=== PATIENT | female | born 1960 | race Caucasian/White ===

== ENCOUNTER 2017-07-22 15:36 | Emergency (ER) | payer MEDICAID ==
[~2017-07-22] VITALS: Ht 160 cm; Wt 71.0 kg
[~2017-07-22 15:36] MED LIST: ACET650S25 PO; BACL-141 PO; DIPH50CA38 PO; DOXE50CA4 PO; NAPR-681 PO; PHEN100C4 PO; TRAZ150T78 PO
[2017-07-22] MEDS ORDERED: HYDROCODONE/APAP 7.5/325MG 1 TAB TABLET PO ONE (19:45)
[2017-07-23 03:07] VITALS: BP 114/70
== END 2017-07-23 03:44 | disposition home or self-care (01) ==
LOC: ER 15:43
DX: S80.01XA Contusion of right knee, initial encounter (principal); J45.909 Unspecified asthma, uncomplicated; F17.200 Nicotine dependence, unspecified, uncomplicated; Z86.73 Personal history of transient ischemic attack (TIA), and cerebral infarction without residual deficits; W17.89XA Other fall from one level to another, initial encounter; Y93.89 Activity, other specified; Y99.8 Other external cause status; Y92.89 Other specified places as the place of occurrence of the external cause
CPT/HCPCS: 73560; 99284; Z7610

== ENCOUNTER 2018-03-16 19:07 | Emergency (ER) | payer MEDICAID ==
[~2018-03-16] VITALS: Ht 167.6 cm; Wt 90.0 kg
[2018-03-16] MEDS ORDERED: IBUPROFEN 800MG TABLET PO ONE (22:00)
[2018-03-16 22:30] VITALS: BP 112/75
== END 2018-03-16 23:00 | disposition home or self-care (01) ==
LOC: ER 19:07
DX: M79.89 Other specified soft tissue disorders (principal); M79.604 Pain in right leg; M25.571 Pain in right ankle and joints of right foot; R03.0 Elevated blood-pressure reading, without diagnosis of hypertension; Z79.899 Other long term (current) drug therapy
CPT/HCPCS: 73610; 73630; 93971; 99284; Z7610

== ENCOUNTER 2019-09-10 10:32 | Emergency (ER) | payer MEDICAID ==
[~2019-09-10] VITALS: Ht 167.6 cm; Wt 70.0 kg
[~2019-09-10 10:32] MED LIST changes: -BACL-141 PO; -NAPR-681 PO
[2019-09-10] MEDS ORDERED: ALBUTEROL (0.083%) 2.5MG/3ML NEB HHN STA (11:50)
[2019-09-10] MEDS ORDERED: IPRATROPIUM BROMIDE (0.02%) 0.5MG/2.5ML NEB HHN STA (11:50)
[2019-09-10] MEDS ORDERED: SODIUM CHLORIDE 0.9% 500 ML IV ONE (12:00)
[2019-09-10 12:09] LABS: BASOPHILS % 0.4 % (0.0-2.0); EOSINOPHILS % 0.6 % (0.0-5.0); HEMATOCRIT. 45.8 % (36.0-48.0); HEMOGLOBIN. 15.3 g/dL (12.0-16.0); LYMPHOCYTES % 8.8 % (20.0-50.0); MEAN CORPUSCULAR HEMOGLOBIN 30.6 pg (28.0-32.0); MEAN CORPUSCULAR VOLUME 91.7 fL (81.0-99.0); MONOCYTES % 11.5 % (2.0-8.0); NEUTROPHILS % 78.7 % (40.0-76.0); PLATELET 59 x1000/uL (130-400); RED CELL DISTRIBUTION WIDTH 15.1 % (11.6-14.6)
[2019-09-10 12:16] LABS: CHLORIDE 105 mEq/L (98-107)
[2019-09-10 12:18] LABS: INR 1.1; PARTIAL THROMBOPLASTIN TIME 24.1 sec (23.4-31.0); PROTHROMBIN TIME 11.6 sec (9.6-11.0)
[2019-09-10] MEDS ORDERED: DILTIAZEM HCL 125 MG in DEXT 5% WATER 100 ML IV ONE (12:45)
[2019-09-10] MEDS ORDERED: DILTIAZEM HCL 5MG/ML 5ML VIAL IV ONE (12:45)
[2019-09-10 14:06] VITALS: BP 132/65
== END 2019-09-10 14:07 | disposition left against medical advice (07) ==
LOC: ER 10:42
DX: R06.02 Shortness of breath (principal); I48.20 Chronic atrial fibrillation, unspecified; I10 Essential (primary) hypertension; J45.909 Unspecified asthma, uncomplicated
CPT/HCPCS: 36415; 71045; 80053; 83880; 84484; 85025; 85610; 85730; 93005; 94640; 99284; C1893; J3490; J7040; J7060; J7611; Z7610

== ENCOUNTER 2019-09-10 19:14 | Inpatient (IN) | payer MEDICAID ==
[~2019-09-10] VITALS: Ht 160 cm; Wt 94.4 kg
[2019-09-10] MEDS ORDERED: METHYLPREDNISOLONE SOD SUCC 125 MG/2 ML VIAL IV STA (20:38)
[2019-09-10] MEDS ORDERED: DILTIAZEM HCL 30MG TABLET PO ONE (20:45)
[2019-09-10] MEDS ORDERED: LEVOFLOXACIN 500MG PREMIX 100 ML IV ONE (20:45)
[2019-09-10] MEDS ORDERED: MAGNESIUM 2 G PREMIX 50 ML IV ONE (20:45)
[2019-09-10] MEDS ORDERED: DILTIAZEM HCL 5MG/ML 5ML VIAL IV ONE (20:45)
[2019-09-10] MEDS ORDERED: IPRATROPIUM/ALBUTEROL 0.5-3(2.5)MG/3ML NEB HHN ONE (20:45)
[2019-09-10 21:46] LABS: CHLORIDE 104 mEq/L (98-107)
[2019-09-10 21:51] LABS: ETHANOL BLOOD < 10 mg/dL; INR 1.1; PARTIAL THROMBOPLASTIN TIME 30.5 sec (23.4-31.0); PROTHROMBIN TIME 11.5 sec (9.6-11.0)
[2019-09-10 22:08] LABS: DIGOXIN 0.1 ng/mL (0.9-2.0)
[2019-09-10 22:22] LABS: BASOPHILS % 0.4 % (0.0-2.0); EOSINOPHILS % 0.2 % (0.0-5.0); HEMATOCRIT. 48.9 % (36.0-48.0); HEMOGLOBIN. 16.6 g/dL (12.0-16.0); MEAN CORPUSCULAR HEMOGLOBIN 30.3 pg (28.0-32.0); MEAN CORPUSCULAR VOLUME 89.4 fL (81.0-99.0); MONOCYTES % 14.6 % (2.0-8.0); NEUTROPHILS % 75.8 % (40.0-76.0); RED BLOOD CELL COUNT 5.47 mill/uL (4.2-5.4); RED CELL DISTRIBUTION WIDTH 15.2 % (11.6-14.6)
[2019-09-10 22:24] LABS: BG BASE EXCESS -0.5 mmol/L (-2.0-2.0); BG CARBOXYHEMOGLOBIN 2.2 % (0.5-1.5); BG DEOXYHEMOGLOBIN 11.9 % (0.0-5.0); BG FRACTION INSPIRED OXYGEN 21; BG HCO3 ACT 23.7 mmol/L (22.0-26.0); BG METHEMOGLOBIN 0.3 % (0.0-1.5); BG OXYGEN SATURATION 87.8 % (92.0-98.5); BG OXYHEMOGLOBIN 85.6 % (94.0-97.0); BG PCO2 37.6 mmHg (35.0-45.0); BG PH 7.417 (7.350-7.450); BG PO2 50.9 mmHg (75.0-100.0); BG SAMPLE SITE RIGHT RADIAL; BG TOTAL HEMOGLOBIN 15.8 g/dL (12.0-18.0); BG VENT MODE ROOM AIR
[2019-09-10 22:36] LABS: PLATELET 207 x1000/uL (130-400)
[2019-09-10] MEDS ORDERED: FUROSEMIDE 40MG/4ML VIAL IVP ONE (22:45)
[2019-09-10] MEDS ORDERED: DILTIAZEM HCL 125 MG in DEXT 5% WATER 100 ML IV ONE (22:45)
[2019-09-11] VITALS (10 sets, daily range): BP systolic 105–150; BP diastolic 60–87
[2019-09-11 02:21] LABS: CLARITY URINE CLOUDY (CLEAR); COLOR URINE YELLOW (YELLOW); KETONES URINE NEGATIVE (NEGATIVE); LEUKOCYTE ESTERASE URINE 2+ (NEGATIVE); NITRITE URINE NEGATIVE (NEGATIVE); OCCULT BLOOD URINE TRACE (NEGATIVE); PH URINE 5.5 (4.5-8.0); PROTEIN URINE TRACE (NEGATIVE); SPECIFIC GRAVITY URINE 1.017 (1.005-1.030)
[2019-09-11 02:33] LABS: *AMPHETAMINES SCREEN URINE NEGATIVE (NEGATIVE); *BARBITURATES SCREEN URINE NEGATIVE (NEGATIVE); *BENZODIAZEPINES SCREEN URINE PRESUMTIVE POSITIVE (NEGATIVE); *COCAINE SCREEN URINE NEGATIVE (NEGATIVE)
[2019-09-11 02:34] LABS: CANNABINOID URINE SCREEN NEGATIVE (NEGATIVE); METHADONE URINE SCREEN NEGATIVE (NEGATIVE); OPIATES URINE SCREEN PRESUMTIVE POSITIVE (NEGATIVE); PHENCYCLIDINE URINE SCREEN NEGATIVE (NEGATIVE)
[2019-09-11] MEDS ORDERED: ACETAMINOPHEN 325MG TABLET PO PRN (09:30)
[2019-09-11] MEDS ORDERED: ONDANSETRON HCL 4MG/2ML INJ IV PRN (09:30)
[2019-09-11] MEDS ORDERED: DIGOXIN 500MCG/2ML AMP IV SCH ×2 (09:30→12:30)
[2019-09-11] MEDS: METHYLPREDNISOLONE SOD SUCC 40 MG/ML VIAL IV SCH ×3 (09:55→22:00)
[2019-09-11] MEDS: FUROSEMIDE 40MG/4ML VIAL IVP SCH (09:56)
[2019-09-11] MEDS ORDERED: ENOXAPARIN 100MG/ML SYR SUBCUT SCH (10:00)
[2019-09-11] MEDS: DIGOXIN 500MCG/2ML AMP IV SCH (17:19)
[2019-09-11] MEDS: ENOXAPARIN 100MG/ML SYR SUBCUT SCH (21:00)
[2019-09-11] MEDS: LEVOFLOXACIN 750MG PREMIX 150 ML IV SCH ×2 (22:00→22:22)
[2019-09-11] MEDS: DILTIAZEM HCL 125 MG in DEXT 5% WATER 100 ML IV PRN (22:06)
[2019-09-11] MEDS: ATORVASTATIN CALCIUM 40MG TABLET PO SCH (22:21)
[2019-09-12] VITALS (12 sets, daily range): BP systolic 91–146; BP diastolic 35–99
[2019-09-12] MEDS: METHYLPREDNISOLONE SOD SUCC 40 MG/ML VIAL IV SCH ×4 (06:00→22:09)
[2019-09-12 07:32] LABS: BASOPHILS % 0.2 % (0.0-2.0); HEMATOCRIT. 44.6 % (36.0-48.0); HEMOGLOBIN. 14.9 g/dL (12.0-16.0); LYMPHOCYTES % 9.6 % (20.0-50.0); MEAN CORPUSCULAR HEMOGLOBIN 30.4 pg (28.0-32.0); MEAN PLATELET VOLUME 9.7 fl (7.4-10.4); MONOCYTES % 14.1 % (2.0-8.0); NEUTROPHILS % 76.1 % (40.0-76.0); PLATELET 186 x1000/uL (130-400); RED CELL DISTRIBUTION WIDTH 15.3 % (11.6-14.6)
[2019-09-12 07:38] LABS: CHLORIDE 101 mEq/L (98-107)
[2019-09-12] MEDS ORDERED: INFLUENZA VIRUS VACCINE(AFLURIA) 0.5ML SYR IM ONE (09:00)
[2019-09-12] MEDS ORDERED: PNEUMOCOCCAL 23-VAL P-SAC VAC 0.5 ML IM ONE (09:00)
[2019-09-12] MEDS: FUROSEMIDE 40MG/4ML VIAL IVP SCH (09:31)
[2019-09-12] MEDS: ENOXAPARIN 100MG/ML SYR SUBCUT SCH ×2 (09:32→22:09)
[2019-09-12] MEDS: DILTIAZEM HCL 125 MG in DEXT 5% WATER 100 ML IV PRN ×2 (09:41→17:12)
[2019-09-12] MEDS: BUDESONIDE 0.5MG/2ML NEB HHN SCH ×3 (10:00→20:59)
[2019-09-12] MEDS: IPRATROPIUM BROMIDE (0.02%) 0.5MG/2.5ML NEB HHN SCH ×5 (11:42→21:00)
[2019-09-12] MEDS: DIGOXIN 500MCG/2ML AMP IV SCH (17:12)
[2019-09-12] MEDS: DILTIAZEM HCL 30MG TABLET PO SCH (18:57)
[2019-09-12] MEDS: ATORVASTATIN CALCIUM 40MG TABLET PO SCH (22:09)
[2019-09-12] MEDS: LEVOFLOXACIN 750MG PREMIX 150 ML IV SCH (22:10)
[2019-09-12] MEDS: GUAIFENESIN-DM 200MG-20MG/10ML UDC PO PRN (23:52)
[2019-09-13] VITALS (12 sets, daily range): BP systolic 81–151; BP diastolic 32–96
[2019-09-13] MEDS: IPRATROPIUM BROMIDE (0.02%) 0.5MG/2.5ML NEB HHN SCH ×6 (01:11→22:08)
[2019-09-13] MEDS: DILTIAZEM HCL 30MG TABLET PO SCH ×4 (01:47→17:28)
[2019-09-13] MEDS: DILTIAZEM HCL 125 MG in DEXT 5% WATER 100 ML IV PRN ×2 (05:56→18:03)
[2019-09-13] MEDS: METHYLPREDNISOLONE SOD SUCC 40 MG/ML VIAL IV SCH ×3 (06:04→21:47)
[2019-09-13 06:35] LABS: HEMATOCRIT. 46.9 % (36.0-48.0); HEMOGLOBIN. 15.9 g/dL (12.0-16.0); LYMPHOCYTES % 7.1 % (20.0-50.0); MEAN CORPUSCULAR HEMOGLOBIN 30.9 pg (28.0-32.0); MEAN CORPUSCULAR VOLUME 91.6 fL (81.0-99.0); MEAN PLATELET VOLUME 10.4 fl (7.4-10.4); MONOCYTES % 7.2 % (2.0-8.0); NEUTROPHILS % 85.7 % (40.0-76.0); PLATELET 196 x1000/uL (130-400); RED BLOOD CELL COUNT 5.13 mill/uL (4.2-5.4); RED CELL DISTRIBUTION WIDTH 15.2 % (11.6-14.6)
[2019-09-13 06:51] LABS: CHLORIDE 103 mEq/L (98-107)
[2019-09-13 07:15] LABS: DIGOXIN 1.4 ng/mL (0.9-2.0)
[2019-09-13] MEDS: BUDESONIDE 0.5MG/2ML NEB HHN SCH ×2 (09:18→22:08)
[2019-09-13] MEDS: FUROSEMIDE 40MG/4ML VIAL IVP SCH (09:52)
[2019-09-13] MEDS: ENOXAPARIN 100MG/ML SYR SUBCUT SCH ×2 (09:53→21:48)
[2019-09-13] MEDS: PHENYTOIN SODIUM EXTENDED 100MG CAPSULE PO SCH ×2 (14:34→21:47)
[2019-09-13] MEDS: DIGOXIN 500MCG/2ML AMP IV SCH (17:23)
[2019-09-13] MEDS: GUAIFENESIN-DM 200MG-20MG/10ML UDC PO PRN ×2 (17:36→23:27)
[2019-09-13] MEDS: DILTIAZEM HCL 90MG TABLET PO SCH ×2 (18:13→23:57)
[2019-09-13] MEDS: LOSARTAN POTASSIUM 25 MG TABLET PO SCH ×2 (18:15→21:48)
[2019-09-13] MEDS: ATORVASTATIN CALCIUM 40MG TABLET PO SCH (21:48)
[2019-09-13] MEDS: LEVOFLOXACIN 750MG PREMIX 150 ML IV SCH (21:49)
[2019-09-14] VITALS (12 sets, daily range): BP systolic 105–186; BP diastolic 58–99
[2019-09-14] MEDS: IPRATROPIUM BROMIDE (0.02%) 0.5MG/2.5ML NEB HHN SCH ×2 (01:45→17:07)
[2019-09-14] MEDS: PHENYTOIN SODIUM EXTENDED 100MG CAPSULE PO SCH ×4 (05:02→21:34)
[2019-09-14] MEDS: DILTIAZEM HCL 90MG TABLET PO SCH ×4 (05:04→17:47)
[2019-09-14] MEDS: METHYLPREDNISOLONE SOD SUCC 40 MG/ML VIAL IV SCH ×4 (05:04→17:53)
[2019-09-14 06:36] LABS: CHLORIDE 104 mEq/L (98-107)
[2019-09-14 06:37] LABS: BASOPHILS % 0.1 % (0.0-2.0); HEMATOCRIT. 48.2 % (36.0-48.0); HEMOGLOBIN. 16.3 g/dL (12.0-16.0); MEAN CORPUSCULAR HEMOGLOBIN 30.9 pg (28.0-32.0); MEAN CORPUSCULAR VOLUME 91.3 fL (81.0-99.0); MEAN PLATELET VOLUME 10.3 fl (7.4-10.4); MONOCYTES % 5.8 % (2.0-8.0); NEUTROPHILS % 86.1 % (40.0-76.0); PLATELET 182 x1000/uL (130-400); RED BLOOD CELL COUNT 5.28 mill/uL (4.2-5.4); RED CELL DISTRIBUTION WIDTH 15.4 % (11.6-14.6)
[2019-09-14] MEDS ORDERED: LIDOCAINE HCL 1% 20ML VIAL (Pyxis) INJ ONE (07:37)
[2019-09-14] MEDS ORDERED: SODIUM BICARBONATE 4% (2.4MEQ) 5ML VIAL IV ONE (07:37)
[2019-09-14] MEDS: FUROSEMIDE 40MG/4ML VIAL IVP SCH (09:00)
[2019-09-14] MEDS: LOSARTAN POTASSIUM 25 MG TABLET PO SCH ×2 (09:43→21:33)
[2019-09-14] MEDS: ENOXAPARIN 100MG/ML SYR SUBCUT SCH ×2 (09:44→21:33)
[2019-09-14] MEDS: DIGOXIN 500MCG/2ML AMP IV SCH (17:48)
[2019-09-14] MEDS: GUAIFENESIN-DM 200MG-20MG/10ML UDC PO PRN (18:10)
[2019-09-14] MEDS: ATORVASTATIN CALCIUM 40MG TABLET PO SCH (21:33)
[2019-09-14] MEDS: ACETYLCYSTEINE 100MG/ML 10% VIAL 4ML INH SCH (22:46)
[2019-09-14] MEDS: BUDESONIDE 0.5MG/2ML NEB HHN SCH (22:46)
[2019-09-14] MEDS: LEVOFLOXACIN 750MG PREMIX 150 ML IV SCH (22:51)
[2019-09-15] VITALS (11 sets, daily range): BP systolic 112–151; BP diastolic 55–105
[2019-09-15] MEDS: DILTIAZEM HCL 90MG TABLET PO SCH ×5 (02:15→23:57)
[2019-09-15] MEDS: GUAIFENESIN-DM 200MG-20MG/10ML UDC PO PRN ×2 (02:15→22:39)
[2019-09-15] MEDS: IPRATROPIUM BROMIDE (0.02%) 0.5MG/2.5ML NEB HHN SCH ×5 (03:12→21:23)
[2019-09-15] MEDS: PHENYTOIN SODIUM EXTENDED 100MG CAPSULE PO SCH ×3 (05:43→22:07)
[2019-09-15 07:50] LABS: BASOPHILS % 0.3 % (0.0-2.0); HEMATOCRIT. 45.5 % (36.0-48.0); HEMOGLOBIN. 15.1 g/dL (12.0-16.0); LYMPHOCYTES % 9.6 % (20.0-50.0); MEAN CORPUSCULAR HEMOGLOBIN 30.1 pg (28.0-32.0); MEAN CORPUSCULAR VOLUME 90.7 fL (81.0-99.0); MEAN PLATELET VOLUME 10.3 fl (7.4-10.4); MONOCYTES % 11.6 % (2.0-8.0); NEUTROPHILS % 78.5 % (40.0-76.0); PLATELET 164 x1000/uL (130-400); RED BLOOD CELL COUNT 5.02 mill/uL (4.2-5.4); RED CELL DISTRIBUTION WIDTH 15.4 % (11.6-14.6)
[2019-09-15] MEDS: ENOXAPARIN 100MG/ML SYR SUBCUT SCH (08:06)
[2019-09-15] MEDS: LOSARTAN POTASSIUM 25 MG TABLET PO SCH ×2 (08:06→22:08)
[2019-09-15] MEDS: METHYLPREDNISOLONE SOD SUCC 40 MG/ML VIAL IV SCH ×2 (08:06→18:37)
[2019-09-15] MEDS: FUROSEMIDE 40MG/4ML VIAL IVP SCH (08:06)
[2019-09-15 08:15] LABS: CHLORIDE 102 mEq/L (98-107)
[2019-09-15] MEDS: ACETYLCYSTEINE 100MG/ML 10% VIAL 4ML INH SCH ×2 (09:06→15:44)
[2019-09-15] MEDS: BUDESONIDE 0.5MG/2ML NEB HHN SCH ×2 (09:08→21:23)
[2019-09-15] MEDS ORDERED: DILTIAZEM HCL 5MG/ML 5ML VIAL IV NR (14:15)
[2019-09-15] MEDS ORDERED: FUROSEMIDE 40MG/4ML VIAL IVP NR (14:15)
[2019-09-15] MEDS ORDERED: GUAIFENESIN/CODEINE 100-10MG/5ML UDC PO PRN (14:15)
[2019-09-15] MEDS: DILTIAZEM HCL 125 MG in DEXT 5% WATER 100 ML IV PRN (15:10)
[2019-09-15] MEDS ORDERED: DILTIAZEM HCL 125 MG in DEXT 5% WATER 100 ML IV SCH (17:00)
[2019-09-15] MEDS: DIGOXIN 500MCG/2ML AMP IV SCH (18:35)
[2019-09-15] MEDS: ATORVASTATIN CALCIUM 40MG TABLET PO SCH (22:08)
[2019-09-15] MEDS: ENOXAPARIN 80MG/0.8ML SYR SUBCUT SCH (22:09)
[2019-09-15] MEDS: LEVOFLOXACIN 750MG PREMIX 150 ML IV SCH (22:10)
[2019-09-16] VITALS: BP 128/75
[2019-09-16] MEDS: ACETYLCYSTEINE 100MG/ML 10% VIAL 4ML INH SCH ×2 (01:15→07:56)
[2019-09-16] MEDS: IPRATROPIUM BROMIDE (0.02%) 0.5MG/2.5ML NEB HHN SCH ×4 (01:17→13:47)
[2019-09-16 02:00] VITALS: BP 122/72
[2019-09-16 04:00] VITALS: BP 122/91
[2019-09-16] MEDS: PHENYTOIN SODIUM EXTENDED 100MG CAPSULE PO SCH ×2 (05:27→14:05)
[2019-09-16] MEDS: DILTIAZEM HCL 90MG TABLET PO SCH ×2 (05:28→12:23)
[2019-09-16 06:00] VITALS: BP 118/65
[2019-09-16] MEDS: BUDESONIDE 0.5MG/2ML NEB HHN SCH (07:55)
[2019-09-16 08:00] VITALS: BP 117/69
[2019-09-16] MEDS: LOSARTAN POTASSIUM 25 MG TABLET PO SCH (09:00)
[2019-09-16 09:04] LABS: BASOPHILS % 0.2 % (0.0-2.0); EOSINOPHILS % 0.1 % (0.0-5.0); HEMATOCRIT. 48.4 % (36.0-48.0); HEMOGLOBIN. 15.8 g/dL (12.0-16.0); LYMPHOCYTES % 9.7 % (20.0-50.0); MEAN CORPUSCULAR HEMOGLOBIN 29.8 pg (28.0-32.0); MEAN CORPUSCULAR VOLUME 90.9 fL (81.0-99.0); MEAN PLATELET VOLUME 10.3 fl (7.4-10.4); MONOCYTES % 10.3 % (2.0-8.0); NEUTROPHILS % 79.7 % (40.0-76.0); PLATELET 176 x1000/uL (130-400); RED BLOOD CELL COUNT 5.32 mill/uL (4.2-5.4); RED CELL DISTRIBUTION WIDTH 15.2 % (11.6-14.6)
[2019-09-16 09:32] LABS: CHLORIDE 98 mEq/L (98-107)
[2019-09-16] MEDS: METHYLPREDNISOLONE SOD SUCC 40 MG/ML VIAL IV SCH (09:54)
[2019-09-16] MEDS: FUROSEMIDE 40MG/4ML VIAL IVP SCH (09:54)
[2019-09-16] MEDS: ENOXAPARIN 80MG/0.8ML SYR SUBCUT SCH (09:55)
[2019-09-16 12:00] VITALS: BP 129/78
[2019-09-16] MEDS ORDERED: FUROSEMIDE 40MG/4ML VIAL IVP SCH (17:15)
[2019-09-16] MEDS ORDERED: ENOXAPARIN 100MG/ML SYR SUBCUT SCH (21:00)
== END 2019-09-16 15:45 | disposition left against medical advice (07) | DRG 720 ==
LOC: ER 19:14 → 5EST 23:17 → EDBEDREQTM 23:19 → EDBEDREQSVC 23:19 → EDBEDREQ 23:19 → ENRESERV 09-11 07:40
PROVIDERS: ADMIT Internal Medicine; ATTEND Internal Medicine
PROC: 02HV33Z Insertion of Infusion Device into Superior Vena Cava, Percutaneous Approach (ICD-10-PCS; principal; 2019-09-14)
PROC: B548ZZA Ultrasonography of Superior Vena Cava, Guidance (ICD-10-PCS; 2019-09-14)
DX: A41.9 Sepsis, unspecified organism (principal); J96.01 Acute respiratory failure with hypoxia; I50.33 Acute on chronic diastolic (congestive) heart failure; D68.59 Other primary thrombophilia; E44.1 Mild protein-calorie malnutrition; E66.01 Morbid (severe) obesity due to excess calories; J44.1 Chronic obstructive pulmonary disease with (acute) exacerbation; J45.901 Unspecified asthma with (acute) exacerbation; N39.0 Urinary tract infection, site not specified; I27.20 Pulmonary hypertension, unspecified; E78.5 Hyperlipidemia, unspecified; F31.9 Bipolar disorder, unspecified; G40.909 Epilepsy, unspecified, not intractable, without status epilepticus; Z53.29 Procedure and treatment not carried out because of patient's decision for other reasons; I11.0 Hypertensive heart disease with heart failure; I48.19 Other persistent atrial fibrillation; J06.9 Acute upper respiratory infection, unspecified; J84.89 Other specified interstitial pulmonary diseases; Q85.00 Neurofibromatosis, unspecified; Z79.01 Long term (current) use of anticoagulants; Z86.711 Personal history of pulmonary embolism; Z86.73 Personal history of transient ischemic attack (TIA), and cerebral infarction without residual deficits; Z87.891 Personal history of nicotine dependence; Z79.899 Other long term (current) drug therapy; Z68.36 Body mass index [BMI] 36.0-36.9, adult
CPT/HCPCS: 36415; 36600; 71045; 76937; 80048; 80053; 80162; 80185; 80305; 80320; 81003; 82375; 82805; 83605; 83735; 83880; 84439; 84443; 84484; 85025; 87070; 87804; 90686; 90732; 93005; 94640; 97162; 99291; C1725; C1769; J1160; J1650; J1940; J1956; J2920; J2930; J3475; J3490; J7060; J7608; J7626; G0480

== ENCOUNTER 2019-10-30 15:16 | Inpatient (IN) | payer MEDICAID ==
[~2019-10-30] VITALS: Ht 167.6 cm; Wt 95.7 kg
[2019-10-30] MEDS ORDERED: ONDANSETRON HCL 4MG/2ML INJ IV ONE (16:30)
[2019-10-30] MEDS ORDERED: MORPHINE SULFATE 4 MG/ML CPJ (NOT FOR IM USE) IV ONE (16:30)
[2019-10-30] MEDS ORDERED: NITROGLYCERIN OINT 1GM/INCH UDPKT TD ONE (16:30)
[2019-10-30] MEDS ORDERED: DILTIAZEM HCL 5MG/ML 5ML VIAL IV ONE ×2 (16:30→17:00)
[2019-10-30 16:54] LABS: BASOPHILS % 0.7 % (0.0-2.0); EOSINOPHILS % 0.2 % (0.0-5.0); HEMATOCRIT. 44.9 % (36.0-48.0); HEMOGLOBIN. 14.7 g/dL (12.0-16.0); LYMPHOCYTES % 10.6 % (20.0-50.0); MEAN CORPUSCULAR HEMOGLOBIN 31.7 pg (28.0-32.0); MEAN CORPUSCULAR VOLUME 96.6 fL (81.0-99.0); MONOCYTES % 11.2 % (2.0-8.0); NEUTROPHILS % 77.3 % (40.0-76.0); PLATELET 232 x1000/uL (130-400); RED BLOOD CELL COUNT 4.65 mill/uL (4.2-5.4); RED CELL DISTRIBUTION WIDTH 16.1 % (11.6-14.6)
[2019-10-30 17:03] LABS: CHLORIDE 110 mEq/L (98-107)
[2019-10-30 17:07] LABS: ETHANOL BLOOD < 10 mg/dL
[2019-10-30] MEDS ORDERED: DILTIAZEM HCL 125 MG in DEXT 5% WATER 100 ML IV ONE ×2 (17:15→17:30)
[2019-10-30] MEDS ORDERED: FUROSEMIDE 20MG/2ML VIAL IVP ONE (17:45)
[2019-10-30] MEDS ORDERED: ONDANSETRON HCL 4MG/2ML INJ IV PRN (18:30)
[2019-10-30] MEDS ORDERED: CEFTRIAXONE 1 G PREMIX 50 ML IV SCH (18:30)
[2019-10-30 18:57] LABS: T4 FREE 0.93 ng/dL (0.76-1.46)
[2019-10-30] MEDS ORDERED: CEFTRIAXONE 1 G PREMIX 50 ML IV NR (22:00)
[2019-10-30] MEDS ORDERED: FUROSEMIDE 40MG/4ML VIAL IVP NR (22:00)
[2019-10-31] VITALS (14 sets, daily range): BP systolic 104–133; BP diastolic 61–96
[2019-10-31] MEDS ORDERED: DILTIAZEM HCL 125 MG in DEXT 5% WATER 100 ML IV SCH (01:00)
[2019-10-31 02:15] LABS: CLARITY URINE CLEAR (CLEAR); COLOR URINE YELLOW (YELLOW); KETONES URINE NEGATIVE (NEGATIVE); LEUKOCYTE ESTERASE URINE 1+ (NEGATIVE); NITRITE URINE NEGATIVE (NEGATIVE); OCCULT BLOOD URINE 1+ (NEGATIVE); PROTEIN URINE NEGATIVE (NEGATIVE); SPECIFIC GRAVITY URINE 1.007 (1.005-1.030); UROBILINOGEN URINE 0.2 E.U./dL (0.2-1.0)
[2019-10-31 02:28] LABS: *AMPHETAMINES SCREEN URINE NEGATIVE (NEGATIVE); *BARBITURATES SCREEN URINE NEGATIVE (NEGATIVE); *BENZODIAZEPINES SCREEN URINE NEGATIVE (NEGATIVE); *COCAINE SCREEN URINE NEGATIVE (NEGATIVE); METHADONE URINE SCREEN NEGATIVE (NEGATIVE); OPIATES URINE SCREEN PRESUMTIVE POSITIVE (NEGATIVE)
[2019-10-31 02:29] LABS: CANNABINOID URINE SCREEN NEGATIVE (NEGATIVE); PHENCYCLIDINE URINE SCREEN NEGATIVE (NEGATIVE)
[2019-10-31 05:49] LABS: BASOPHILS % 1.1 % (0.0-2.0); EOSINOPHILS % 0.4 % (0.0-5.0); HEMATOCRIT. 40.8 % (36.0-48.0); HEMOGLOBIN. 13.2 g/dL (12.0-16.0); LYMPHOCYTES % 8.9 % (20.0-50.0); MEAN CORPUSCULAR VOLUME 95.8 fL (81.0-99.0); MONOCYTES % 14.3 % (2.0-8.0); NEUTROPHILS % 75.3 % (40.0-76.0); PLATELET 211 x1000/uL (130-400); RED BLOOD CELL COUNT 4.26 mill/uL (4.2-5.4); RED CELL DISTRIBUTION WIDTH 15.9 % (11.6-14.6)
[2019-10-31 05:54] LABS: CHLORIDE 109 mEq/L (98-107)
[2019-10-31 06:05] LABS: PROTHROMBIN TIME 11.1 sec (9.6-11.0)
[2019-10-31] MEDS ORDERED: ENOXAPARIN 80MG/0.8ML SYR SUBCUT SCH (09:00)
[2019-10-31] MEDS ORDERED: DILTIAZEM HCL 5MG/ML 5ML VIAL IV ONE (09:15)
[2019-10-31] MEDS: AZITHROMYCIN 500 MG TABLET PO SCH (09:29)
[2019-10-31] MEDS: FUROSEMIDE 40MG/4ML VIAL IVP SCH ×2 (09:29→18:29)
[2019-10-31] MEDS: DILTIAZEM 125MG in DEXTROSE 5% WATER 125ML IV SCH ×2 (10:44→20:10)
[2019-10-31] MEDS ORDERED: METHYLPREDNISOLONE SOD SUCC 40 MG/ML VIAL IV SCH (11:00)
[2019-10-31] MEDS: ACETAMINOPHEN 325MG TABLET PO PRN (12:21)
[2019-10-31] MEDS: METHYLPREDNISOLONE SOD SUCC 40 MG/ML VIAL IV SCH ×2 (12:21→20:08)
[2019-10-31] MEDS ORDERED: DIGOXIN 250MCG TABLET PO NR (14:00)
[2019-10-31] MEDS: CEFTRIAXONE 1,000 MG in DEXTROSE 5% WATER 50 ML IV SCH (14:28)
[2019-10-31] MEDS: DILTIAZEM HCL 60MG TABLET PO SCH ×2 (18:30→23:27)
[2019-10-31] MEDS: APIXABAN 5 MG TABLET PO SCH (18:30)
[2019-10-31] MEDS: ATORVASTATIN CALCIUM 20MG TABLET PO SCH (20:08)
[2019-10-31] MEDS ORDERED: CEFTRIAXONE 1 G PREMIX 50 ML IV SCH (22:00)
[2019-10-31] MEDS ORDERED: LORAZEPAM 2MG/ML CPJ IM PRN (22:45)
[2019-10-31] MEDS: HYDROCODONE/ACETAMINOPHEN 5/325MG TABLET PO PRN (23:29)
[2019-11-01] VITALS (16 sets, daily range): BP systolic 94–130; BP diastolic 31–95
[2019-11-01] MEDS: METHYLPREDNISOLONE SOD SUCC 40 MG/ML VIAL IV SCH ×3 (03:48→20:14)
[2019-11-01] MEDS: DILTIAZEM 125MG in DEXTROSE 5% WATER 125ML IV SCH ×3 (03:55→20:19)
[2019-11-01] MEDS: DILTIAZEM HCL 60MG TABLET PO SCH (05:25)
[2019-11-01] MEDS: HYDROCODONE/ACETAMINOPHEN 5/325MG TABLET PO PRN ×2 (05:48→11:05)
[2019-11-01] MEDS ORDERED: LIDOCAINE HCL 1% 20ML VIAL (Pyxis) INJ ONE (07:59)
[2019-11-01] MEDS: PHENYTOIN SODIUM EXTENDED 100MG CAPSULE PO SCH (08:58)
[2019-11-01] MEDS: APIXABAN 5 MG TABLET PO SCH ×2 (08:58→17:12)
[2019-11-01] MEDS: AZITHROMYCIN 500 MG TABLET PO SCH (08:58)
[2019-11-01] MEDS: FUROSEMIDE 40MG/4ML VIAL IVP SCH ×2 (08:59→17:12)
[2019-11-01 11:10] LABS: MEAN CORPUSCULAR HEMOGLOBIN 30.9 pg (28.0-32.0); MEAN CORPUSCULAR VOLUME 95.1 fL (81.0-99.0); PLATELET 236 x1000/uL (130-400); RED BLOOD CELL COUNT 4.52 mill/uL (4.2-5.4); RED CELL DISTRIBUTION WIDTH 16.1 % (11.6-14.6)
[2019-11-01 12:51] LABS: CHLORIDE 103 mEq/L (98-107)
[2019-11-01 12:59] LABS: LDL CHOLESTEROL 106 mg/dL (5-100); TOTAL IRON BINDING CAPACITY 357 ug/dL (250-450)
[2019-11-01 13:00] LABS: HDL CHOLESTEROL 53 mg/dL (40-59)
[2019-11-01] MEDS: DILTIAZEM HCL 90MG TABLET PO SCH ×2 (13:55→20:15)
[2019-11-01] MEDS: CEFTRIAXONE 1,000 MG in DEXTROSE 5% WATER 50 ML IV SCH (13:55)
[2019-11-01 14:25] LABS: VITAMIN B12 SERUM 1089 pg/mL (211-911)
[2019-11-01 17:16] LABS: PLATELET ESTIMATE NORMAL
[2019-11-01] MEDS: ATORVASTATIN CALCIUM 20MG TABLET PO SCH (20:15)
[2019-11-01] MEDS: IPRATROPIUM BROMIDE (0.02%) 0.5MG/2.5ML NEB HHN PRN (21:17)
[2019-11-02] VITALS (16 sets, daily range): BP systolic 98–137; BP diastolic 55–76
[2019-11-02] MEDS: HYDROCODONE/ACETAMINOPHEN 5/325MG TABLET PO PRN ×4 (00:29→20:05)
[2019-11-02] MEDS: DILTIAZEM HCL 90MG TABLET PO SCH (04:26)
[2019-11-02] MEDS: METHYLPREDNISOLONE SOD SUCC 40 MG/ML VIAL IV SCH ×3 (04:27→20:05)
[2019-11-02] MEDS: DILTIAZEM 125MG in DEXTROSE 5% WATER 125ML IV SCH (05:02)
[2019-11-02 06:56] LABS: HEMATOCRIT. 40.3 % (36.0-48.0); HEMOGLOBIN. 13.4 g/dL (12.0-16.0); MEAN CORPUSCULAR HEMOGLOBIN 32.1 pg (28.0-32.0); MEAN CORPUSCULAR VOLUME 96.5 fL (81.0-99.0); MEAN PLATELET VOLUME 10.4 fl (7.4-10.4); PLATELET 230 x1000/uL (130-400); RED BLOOD CELL COUNT 4.18 mill/uL (4.2-5.4); RED CELL DISTRIBUTION WIDTH 15.5 % (11.6-14.6)
[2019-11-02 07:10] LABS: CHLORIDE 110 mEq/L (98-107)
[2019-11-02] MEDS: AZITHROMYCIN 500 MG TABLET PO SCH (07:56)
[2019-11-02] MEDS: PHENYTOIN SODIUM EXTENDED 100MG CAPSULE PO SCH (07:56)
[2019-11-02] MEDS ORDERED: POTASSIUM CHLORIDE 20MEQ TABLET SR PO NR (08:40)
[2019-11-02] MEDS: APIXABAN 5 MG TABLET PO SCH ×2 (08:49→17:07)
[2019-11-02] MEDS: FUROSEMIDE 40MG/4ML VIAL IVP SCH ×2 (08:49→17:07)
[2019-11-02 11:04] LABS: CLARITY URINE TURBID (CLEAR); COLOR URINE RED (YELLOW); KETONES URINE NEGATIVE (NEGATIVE); LEUKOCYTE ESTERASE URINE 2+ (NEGATIVE); NITRITE URINE NEGATIVE (NEGATIVE); OCCULT BLOOD URINE 3+ (NEGATIVE); PROTEIN URINE 2+ (NEGATIVE); SPECIFIC GRAVITY URINE 1.016 (1.005-1.030); UROBILINOGEN URINE 0.2 E.U./dL (0.2-1.0)
[2019-11-02] MEDS: DILTIAZEM HCL 120MG CAPSULE CD 24HR PO SCH ×2 (11:33→20:04)
[2019-11-02] MEDS: CEFTRIAXONE 1,000 MG in DEXTROSE 5% WATER 50 ML IV SCH (13:41)
[2019-11-02 16:18] LABS: PLATELET ESTIMATE NORMAL
[2019-11-02] MEDS: IPRATROPIUM BROMIDE (0.02%) 0.5MG/2.5ML NEB HHN PRN (17:35)
[2019-11-02] MEDS: ATORVASTATIN CALCIUM 20MG TABLET PO SCH (20:05)
[2019-11-03] VITALS (8 sets, daily range): BP systolic 103–130; BP diastolic 49–94
[2019-11-03] MEDS: ACETAMINOPHEN 325MG TABLET PO PRN ×2 (00:15→08:23)
[2019-11-03] MEDS: HYDROCODONE/ACETAMINOPHEN 5/325MG TABLET PO PRN (02:24)
[2019-11-03] MEDS: METHYLPREDNISOLONE SOD SUCC 40 MG/ML VIAL IV SCH ×2 (05:25→11:17)
[2019-11-03 06:59] LABS: HEMATOCRIT. 42.3 % (36.0-48.0); HEMOGLOBIN. 13.9 g/dL (12.0-16.0); MEAN CORPUSCULAR HEMOGLOBIN 31.3 pg (28.0-32.0); MEAN CORPUSCULAR VOLUME 94.9 fL (81.0-99.0); MEAN PLATELET VOLUME 10.3 fl (7.4-10.4); PLATELET 210 x1000/uL (130-400); RED BLOOD CELL COUNT 4.45 mill/uL (4.2-5.4); RED CELL DISTRIBUTION WIDTH 15.2 % (11.6-14.6)
[2019-11-03 07:00] LABS: CHLORIDE 101 mEq/L (98-107)
[2019-11-03] MEDS: DILTIAZEM HCL 120MG CAPSULE CD 24HR PO SCH (08:19)
[2019-11-03] MEDS: PHENYTOIN SODIUM EXTENDED 100MG CAPSULE PO SCH (08:20)
[2019-11-03] MEDS: APIXABAN 5 MG TABLET PO SCH (08:20)
[2019-11-03] MEDS: FUROSEMIDE 40MG/4ML VIAL IVP SCH (08:20)
[2019-11-03] MEDS: AZITHROMYCIN 500 MG TABLET PO SCH (08:20)
[2019-11-03] MEDS ORDERED: DIGOXIN 500MCG/2ML AMP IV NR (10:30)
[2019-11-03] MEDS: IPRATROPIUM BROMIDE (0.02%) 0.5MG/2.5ML NEB HHN PRN (11:08)
[2019-11-03] MEDS ORDERED: METO-539 PO (11:41)
[2019-11-03] MEDS ORDERED: TRAZ150T78 PO (11:41)
[2019-11-03] MEDS ORDERED: APIX5TAB PO (11:41)
[2019-11-03] MEDS ORDERED: FURO40TA5 PO (11:41)
[2019-11-03] MEDS ORDERED: DIGO-28 PO (11:41)
[2019-11-03] MEDS ORDERED: ATOR20TA PO (11:41)
[2019-11-03] MEDS ORDERED: CEFTRIAXONE 1 G PREMIX 50 ML IV SCH (14:00)
[2019-11-03 14:30] LABS: ATYPICAL LYMPHOCYTES 1
[2019-11-03 14:31] LABS: PLATELET ESTIMATE NORMAL
[2019-11-03] MEDS ORDERED: METOPROLOL TARTRATE 50MG TABLET PO SCH (21:00)
[2019-11-04] MEDS ORDERED: FUROSEMIDE 40MG TABLET PO SCH (09:00)
[2019-11-04] MEDS ORDERED: DIGOXIN 250MCG TABLET PO SCH (18:00)
== END 2019-11-03 18:10 | disposition home or self-care (01) | DRG 720 ==
LOC: ER 15:16 → 3WST 17:38 → EDBEDREQ 17:40 → EDBEDREQTM 17:40 → ENRESERV 21:12 → CANRESERV 21:12 → EDBEDREQTM 22:15 → EDBEDREQSVC 22:15 → CANRESERV 10-31 09:32 → ENRESERV 10-31 09:32
PROVIDERS: ADMIT Internal Medicine; ATTEND Internal Medicine
PROC: 02HV33Z Insertion of Infusion Device into Superior Vena Cava, Percutaneous Approach (ICD-10-PCS; principal; 2019-11-01)
PROC: B548ZZA Ultrasonography of Superior Vena Cava, Guidance (ICD-10-PCS; 2019-11-01)
PROC: B5181ZA Fluoroscopy of Superior Vena Cava using Low Osmolar Contrast, Guidance (ICD-10-PCS; 2019-11-01)
DX: A41.9 Sepsis, unspecified organism (principal); J96.00 Acute respiratory failure, unspecified whether with hypoxia or hypercapnia; I50.33 Acute on chronic diastolic (congestive) heart failure; I27.20 Pulmonary hypertension, unspecified; J18.9 Pneumonia, unspecified organism; E44.1 Mild protein-calorie malnutrition; I11.0 Hypertensive heart disease with heart failure; I48.91 Unspecified atrial fibrillation; G40.909 Epilepsy, unspecified, not intractable, without status epilepticus; J44.1 Chronic obstructive pulmonary disease with (acute) exacerbation; J45.901 Unspecified asthma with (acute) exacerbation; F31.9 Bipolar disorder, unspecified; F17.210 Nicotine dependence, cigarettes, uncomplicated; E78.5 Hyperlipidemia, unspecified; E87.6 Hypokalemia; R31.9 Hematuria, unspecified; Z79.01 Long term (current) use of anticoagulants; Z86.711 Personal history of pulmonary embolism; Z68.34 Body mass index [BMI] 34.0-34.9, adult; Z79.899 Other long term (current) drug therapy; Z71.6 Tobacco abuse counseling
CPT/HCPCS: 36415; 36573; 71045; 76937; 80048; 80053; 80061; 80185; 80305; 80320; 81003; 82607; 83540; 83550; 83735; 83880; 84439; 84443; 84484; 85025; 93005; 93970; 94640; 99291; C1725; J0696; J1160; J1650; J1940; J2270; J2405; J2920; J3490; J7060; G0480